=== PATIENT | female | born 1965 | race Caucasian/White ===

== ENCOUNTER → 2020-11-27 | Outpatient (CLI) | payer MEDICARE, OTHER | LOC: WCC 09:48 | DX: L89.96 Pressure-induced deep tissue damage of unspecified site (principal); G35 Multiple sclerosis; M62.3 Immobility syndrome (paraplegic); I10 Essential (primary) hypertension; E66.01 Morbid (severe) obesity due to excess calories; E11.628 Type 2 diabetes mellitus with other skin complications; Z79.4 Long term (current) use of insulin; E11.610 Type 2 diabetes mellitus with diabetic neuropathic arthropathy | CPT/HCPCS: G0463 ==